=== PATIENT | male | born 1980 | race Two or more races ===

== ENCOUNTER 2025-05-07 06:19 | Outpatient (CLI) | payer OTHER ==
[2025-05-07 06:46] LABS: Hematocrit 44.1 % (41.0-53.0); Hemoglobin 15.6 g/dL (13.5-17.5); Mean Corpuscular Hemoglobin 29.6 pg (28.0-32.0); Mean Corpuscular Volume 83.8 fL (80.0-100.0); Nucleated Red Blood Cells % 0.5 %
[2025-05-07 06:50] LABS: Urine Protein, UAD Negative (Negative)
[2025-05-07 07:21] LABS: Iron 68.0 ug/dL (65-175)
[2025-05-07 07:23] LABS: Prostate Specific Antigen 0.42 ng/mL (0.0-4.0)
[2025-05-07 07:29] LABS: Free T4 (Free Thyroxine) 1.15 ng/dL (0.89-1.76)
[2025-05-07 07:31] LABS: Alanine Aminotransferase 21 U/L (7-40); Albumin 4.7 g/dL (3.2-4.8); Alkaline Phosphatase 75 U/L (46-116); Anion Gap 10 (5-15); BUN/Creatinine Ratio 14.3 (10.0-20.0); Blood Urea Nitrogen 11 mg/dL (9-23); Calcium 9.3 mg/dL (8.7-10.4); Carbon Dioxide 27 mmol/L (20-31); Chloride 105 mmol/L (98-107); Cholesterol 168 mg/dL (< 200); Potassium 3.9 mmol/L (3.5-5.1); Sodium 142 mmol/L (136-145); Total Protein 7.2 g/dL (5.7-8.2); Triglycerides 98 mg/dL (< 150)
[2025-05-07 07:32] LABS: Bilirubin, Total 1.1 mg/dL (0.2-1.0); Total Iron Binding Capacity 228.0 ug/dL (250-425)
[2025-05-07 07:40] LABS: Glucose 112 mg/dL (74-106); HDL Cholesterol 36 mg/dL (40-59)
== END 2025-05-07 17:00 | disposition home or self-care (01) ==
LOC: LAB 06:19
PROVIDERS: ATTEND Family Medicine
DX: N52.9 Male erectile dysfunction, unspecified (principal); M62.08 Separation of muscle (nontraumatic), other site; M54.42 Lumbago with sciatica, left side; Z68.30 Body mass index [BMI] 30.0-30.9, adult
CPT/HCPCS: 36415; 80053; 80061; 81001; 82306; 82607; 83036; 83540; 83550; 84153; 84403; 84439; 84443; 85025